=== PATIENT | female | born 1980 | race African-American/Black ===

== ENCOUNTER 2016-09-25 02:18 | Emergency (ER) | payer BC, MEDICAID ==
[~2016-09-25] VITALS: Ht 154.9 cm; Wt 119.0 kg
[~2016-09-25 02:18] MED LIST: DICL75 PO; TRAM50 PO; Z.0.NO CURRENT MEDS
[2016-09-25 02:21] VITALS: BP 159/101; PULSE 85; RESP 15; TEMP 98.4; O2SAT 100
--- NOTE | 2016-09-25 02:35 | PD ---
HPI Chief Complaint: Chest Pain Time Seen by Provider: 02:35 Travel History International Travel<30 days: No Contact w/Intl Traveler<30days: No Traveled to known affect area: No History of Present Illness HPI 35-year-old female came to the emergency room with history of on and off left sided chest pain for past 5 days. Patient says that when the pain comes it travels down her left arm and is severe. Tonight it woke her up at 3:00. No history of shortness of breath. Patient says that the pain is worse when she is moving around and gets better when she tries to relax and meditate. It is a sharp squeezing pain as per the patient. Vital signs are stable. She is otherwise a healthy person. [facility] Past Medical History Narrative Medical List of her past medical, surgical, social and family history is reviewed from the nursing note. Anemia: Yes Cardiovascular Problems: Yes (CHEST PAIN W/U 08/20) Diminished Hearing: No Immunizations Current: No ?: LMP: 8-14-17 : 4 Para: 3 Miscarriage: 0 : 1 Ovarian Cysts: No Past Surgical History Section: Yes (X 3) Gynecologic Surgery: Yes ( x3) Oral Surgery: Yes Social History Alcohol Use: No Tobacco Use: No Substance Use: No Allergies-Medications (Allergen,Severity, Reaction): Coded Allergies: metronidazole (Verified Adverse Reaction, Mild, Diarrhea, 09/25/16) Comments List of her allergies reviewed from the nursing note. Reported Meds & Prescriptions Reported Meds & Active Scripts Active Ibuprofen 600 Mg Tab 600 Mg PO Q6H PRN Narrative Medication List of her home medications are from the nursing note. Review of Systems Except as stated in HPI: all other systems reviewed are Neg Physical Exam Narrative GENERAL: Awake, alert, obese, anxious, mild distress SKIN: Focused skin assessment warm/dry. HEAD: Atraumatic. Normocephalic. EYES: Pupils equal and round. No scleral icterus. No injection or drainage. ENT: No nasal bleeding or discharge. Mucous membranes pink and moist. NECK: Trachea midline. No JVD. CARDIOVASCULAR: Regular rate and rhythm. No murmur appreciated. RESPIRATORY: No accessory muscle use. Clear to auscultation. Breath sounds equal bilaterally. Tender on the chest wall area on the sternum and left side GASTROINTESTINAL: Abdomen soft, non-tender, nondistended. Hepatic and splenic margins not palpable. MUSCULOSKELETAL: No obvious deformities. No clubbing. No cyanosis. No edema. NEUROLOGICAL: Awake and alert. No obvious cranial nerve deficits. Motor grossly within normal limits. Normal speech. PSYCHIATRIC: Appropriate mood and affect; insight and judgment normal. Data Data Last Documented VS Vital Signs Date Time Temp Pulse Resp B/P (MAP) Pulse Ox O2 Delivery O2 Flow Rate FiO2 09/25/16 02:56 70 157/99 (118) Nasal Cannula 146/89 (108) 09/25/16 02:55 100 09/25/16 02:40 98.1 17 Orders Orders Electrocardiogram (09/25/16 02:49) Basic Metabolic Panel (Bmp) (09/25/16 02:49) Ckmb (Isoenzyme) Profile (09/25/16 02:49) Complete Blood Count With Diff (09/25/16 02:49) D-Dimer (09/25/16 02:49) Magnesium (Mg) (09/25/16 02:49) Prothrombin Time / Inr (Pt) (09/25/16 02:49) Act Partial Throm Time (Ptt) (09/25/16 02:49) Troponin I (09/25/16 02:49) Chest, Single Ap (09/25/16 02:49) Ecg Monitoring (09/25/16 02:49) Bilateral Bp Monitoring (09/25/16 02:49) Iv Access Insert/Monitor (09/25/16 02:49) Oximetry (09/25/16 02:49) Oxygen Administration (09/25/16 02:49) Sodium Chloride 0.9% Flush (Ns Flush) (09/25/16 03:00) CKMB (09/25/16 02:55) CKMB% (09/25/16 02:55) Ct Pulmonary Angiogram (09/25/16 ) Iohexol 350 Inj (Omnipaque 350 Inj) (09/25/16 04:33) Labs Laboratory Tests Test 09/25/16 02:55 White Blood Count 7.7 TH/MM3 Red Blood Count 4.77 MIL/MM3 Hemoglobin 11.0 GM/DL Hematocrit 34.1 % Mean Corpuscular Volume 71.5 FL Mean Corpuscular Hemoglobin 23.0 PG Mean Corpuscular Hemoglobin Concent 32.1 % Red Cell Distribution Width 14.3 % Platelet Count 333 TH/MM3 Mean Platelet Volume 7.9 FL Neutrophils (%) (Auto) 42.7 % Lymphocytes (%) (Auto) 47.2 % Monocytes (%) (Auto) 7.0 % Eosinophils (%) (Auto) 2.2 % Basophils (%) (Auto) 0.9 % Neutrophils # (Auto) 3.3 TH/MM3 Lymphocytes # (Auto) 3.6 TH/MM3 Monocytes # (Auto) 0.5 TH/MM3 Eosinophils # (Auto) 0.2 TH/MM3 Basophils # (Auto) 0.1 TH/MM3 CBC Comment DIFF FINAL Differential Comment Prothrombin Time 10.7 SEC Prothromb Time International Ratio 1.0 RATIO Activated Partial Thromboplast Time 27.7 SEC D-Dimer Quantitative (PE/DVT) 0.79 MG/L FEU Blood Urea Nitrogen 12 MG/DL Creatinine 0.71 MG/DL Random Glucose 108 MG/DL Calcium Level 8.6 MG/DL Magnesium Level 1.8 MG/DL Sodium Level 140 MEQ/L Potassium Level 3.7 MEQ/L Chloride Level 105 MEQ/L Carbon Dioxide Level 29.8 MEQ/L Anion Gap 5 MEQ/L Estimat Glomerular Filtration Rate 113 ML/MIN Total Creatine Kinase 187 U/L Creatine Kinase MB 1.4 NG/ML Troponin I LESS THAN 0.02 NG/ML MDM Medical Decision Making Medical Screen Exam Complete: Yes Emergency Medical Condition: Yes Medical Record Reviewed: Yes Interpretation(s) Twelve-lead EKG was reviewed by me. Normal sinus rhythm, left axis deviation, inferior T wave inversions, J-point elevation. Heart rate of 69 bpm. Differential Diagnosis ACS, atypical chest pain, chest wall pain Narrative Course 4:47 AM blood test results of back and within normal limit. Patient's d-dimer however was elevated due to which a CT pulmonary angiogram was ordered. However it is negative for PE. Patient will be discharged home. Procedures EKG Prior to Arrival: No Diagnosis Primary Impression: Chest wall pain Referrals: Primary Care Physician 2 days Additional Instructions: Please return to the ER if the condition worsens or any other new concerns. Take the medication as per the prescription direction when needed. Follow-up with your primary care in couple days. He can apply warm compresses alternating with cold compress on the chest wall area. Do not take the medication empty stomach. Med/Other Pt SpecificInfo: Prescription(s) given Scripts Ibuprofen (Ibuprofen) 600 Mg Tab 600 MG PO Q6H Y for Pain/Inflammation, #40 TAB 0 Refills Prov: Jadiel Puentes MD 09/25/16 Disposition: 01 DISCHARGE HOME Condition: Stable Jadiel Puentes MD Sep 25, 2016 02:35
[2016-09-25 02:40] VITALS: BP 157/99; PULSE 81; RESP 17; TEMP 98.1; O2SAT 100
[2016-09-25 02:56] VITALS: BP_SYST 146; BP_SYST 157; BP_DIAS 89; BP_DIAS 99; PULSE 70
[2016-09-25] MEDS ORDERED: SODIUM CHLORIDE 0.9% FLUSH 10 ML FLUSH IVF PRN (03:00)
[2016-09-25 03:09] LABS: AUTOMATED NEUTROPHIL # 3.3 TH/MM3 (1.8-7.7); BASOPHIL # 0.1 TH/MM3 (0-0.2); BASOPHIL % 0.9 % (0.0-2.0); EOSINOPHIL # 0.2 TH/MM3 (0-0.4); EOSINOPHIL % 2.2 % (0.0-4.0); HEMATOCRIT 34.1 % (35.0-46.0); HEMO FLAGS DIFF FINAL; LYMPH % 47.2 % (9.0-44.0); LYMPHOCYTE # 3.6 TH/MM3 (1.0-4.8); MEAN CELL VOLUME 71.5 FL (80.0-100.0); MEAN CORPUSCULAR HGB CONC 32.1 % (32.0-36.0); NEUT % 42.7 % (16.0-70.0); PLATELET COUNT 333 TH/MM3 (150-450); RED BLOOD COUNT 4.77 MIL/MM3 (4.00-5.30); RED CELL DISTRIBUTION WIDTH 14.3 % (11.6-17.2); WHITE BLOOD COUNT 7.7 TH/MM3 (4.0-11.0)
[2016-09-25 03:23] LABS: APTT (PATIENT) 27.7 SEC (24.3-30.1); PROTHROMBIN TIME - PATIENT 10.7 SEC (9.8-11.6)
[2016-09-25 03:36] LABS: ANION GAP 5 MEQ/L (5-15); BICARBONATE 29.8 MEQ/L (21.0-32.0); BLOOD UREA NITROGEN 12 MG/DL (7-18); CHLORIDE 105 MEQ/L (98-107); GLOMERULAR FILTRATION RATE 113 ML/MIN (>89); MAGNESIUM 1.8 MG/DL (1.5-2.5); POTASSIUM 3.7 MEQ/L (3.5-5.1); SODIUM (NA) 140 MEQ/L (136-145)
[2016-09-25 03:41] LABS: CREATINE KINASE 187 U/L (26-192)
[2016-09-25 03:54] LABS: CKMB 1.4 NG/ML (0.5-3.6)
--- NOTE | 2016-09-25 04:13 | RADRPT ---
EXAM DATE/TIME: 09/25/2016 03:11 [facility] COMPARISON: CHEST SINGLE AP, July 21, 2011, 18:58. INDICATIONS : Chest pain. MEDICAL HISTORY : None. SURGICAL HISTORY : None. ENCOUNTER: Subsequent ACUITY: 3 days PAIN SCORE: 6/10 LOCATION: Bilateral chest FINDINGS: A single view of the chest demonstrates the lungs to be symmetrically aerated without evidence of mas s, infiltrate or effusion. The cardiomediastinal contours are unremarkable. Osseous structures are intact. CONCLUSION: The lungs are clear. Marty Sanchez MD on September 25, 2016 at 4:12 Board Certified Radiologist. This report was verified electronically.
[2016-09-25] MEDS ORDERED: IOHEXOL 350 MG/ML 10 ML VIAL (for RAD DIAG) IV ONE (04:33)
--- NOTE | 2016-09-25 04:41 | RADRPT ---
EXAM DATE/TIME: 09/25/2016 04:16 [facility] COMPARISON: No previous studies available for comparison. INDICATIONS : Left sided chest pain with elevated D-Dimer. IV CONTRAST: 70 cc Omnipaque 350 (iohexol) IV RADIATION DOSE: 20.05 CTDIvol (mGy) MEDICAL HISTORY : None SURGICAL HISTORY : None. ENCOUNTER: Initial ACUITY: 3 days PAIN SCALE: 6/10 LOCATION: Left chest TECHNIQUE: Volumetric scanning of the chest was performed using a pulmonary embolism protocol MIP images were re constructed. Using automated exposure control and adjustment of the mA and/or kV according to patien t size, radiation dose was kept as low as reasonably achievable to obtain optimal diagnostic quality images. DICOM format image data is available electronically for review and comparison. Follow-up recommendations for detected pulmonary nodules are based at a minimum on nodule size and pa tient risk factors according to Fleischner Society Guidelines. FINDINGS: PULMONARY ARTERIES: No filling defects are seen in the pulmonary arteries through the segmental level. LUNGS: There is no consolidation or pneumothorax . No concerning pulmonary nodule is visualized. PLEURAE: There is no pleural thickening or pleural effusion. MEDIASTINUM: There is good visualization of the great vessels of the middle mediastinum. No evidence of mediastin al or hilar adenopathy/mass. Soft tissue in the anterior mediastinum probably represents thymic remn ant. CONCLUSION: The study is negative for pulmonary embolism. Marty Sanchez MD on September 25, 2016 at 4:38 Board Certified Radiologist. This report was verified electronically.
[2016-09-25] MEDS ORDERED: IBUP-232 PO (04:49)
--- NOTE | 2016-09-25 09:01 | EKG ---
Date Performed: 09/25/2016 Time Performed: 02:53:30 PTAGE: 35 years EKG: Sinus rhythm NORMAL ECG PREVIOUS TRACING : 07/21/2011 18.19 DOCTOR: Linwood Saxena Interpretating Date/Time 09/25/2016 08:56:05
== END 2016-09-25 05:11 | disposition home or self-care (01) ==
LOC: NEPE 02:18
DX: R07.89 Other chest pain (principal); D64.9 Anemia, unspecified
CPT/HCPCS: 71010; 71275; 80048; 82550; 82552; 83735; 84484; 85025; 85379; 85610; 85730; 93005; 99285; Q9967

== ENCOUNTER 2018-02-15 05:30 | Observation (INO) ==
[2018-02-15 06:08] VITALS: RESP 16
[2018-02-15 06:10] LABS: Baso # (Auto) 0.1 th/mm3 (0.0-0.2); Baso % (Auto) 0.8 % (0.0-2.0); Eos # (Auto) 0.1 th/mm3 (0.0-0.4); Hematocrit 32.4 % (35.0-46.0); Hemoglobin 10.5 gm/dL (11.6-15.3); Lymph # (Auto) 3.1 th/mm3 (1.0-4.8); Lymph % (Auto) 45.2 % (9.0-44.0); Mean Corpuscular HGB Conc 32.3 % (32.0-36.0); Mean Corpuscular Hemoglobin 23.6 pg (27.0-34.0); Mean Corpuscular Volume 73.2 fL (80.0-100.0); Mean Platelet Volume 8.1 fL (7.0-11.0); Mono # (Auto) 0.5 th/mm3 (0.0-0.9); Mono % (Auto) 7.3 % (0.0-8.0); Neut # (Auto) 3.1 th/mm3 (1.8-7.7); Neut % (Auto) 44.7 % (16.0-70.0); Platelet Count 294 th/mm3 (150-450); Red Blood Count 4.43 mil/mm3 (4.00-5.30); Red Cell Distribution Width 14.9 % (11.6-17.2)
[2018-02-15 06:22] LABS: Activated Partial Thrombo Time 26.1 sec (23.4-31.7); Prothrombin Time 10.2 sec (9.8-11.6)
[2018-02-15 06:35] LABS: Alanine Aminotransferase 22 U/L (10-53); Albumin 3.2 g/dL (3.4-5.0); Alkaline Phosphatase 94 U/L (45-117); Anion Gap 6 meq/L (5-15); Aspartate Aminotransferase 23 U/L (15-37); Blood Urea Nitrogen 11 mg/dL (7-18); Calcium 8.2 mg/dL (8.5-10.1); Carbon Dioxide 22.9 meq/L (21.0-32.0); Chloride 109 meq/L (98-107); Creatine Kinase 222 U/L (26-192); Glomerular Filtration Rate Greater Than 89 mL/min (>89); Glucose,Random 124 mg/dL (74-106); Lipase 215 U/L (73-393); Magnesium 1.8 mg/dL (1.5-2.5); Potassium 5.1 meq/L (3.5-5.1); Sodium 138 meq/L (136-145); Total Protein 7.6 g/dL (6.4-8.2)
--- NOTE | 2018-02-15 06:44 | XR ---
EXAM DATE: 02/15/2018 6:30 AM EST AGE/SEX: 37 years / Female INDICATIONS: Chest pain. CLINICAL DATA: This is the patient's initial encounter. Patient reports that signs and symptoms have been present for 1 day and indicates a pain score of 7/10. MEDICAL/SURGICAL HISTORY: None. None. COMPARISON: No prior exams available for comparison. FINDINGS: A single AP view of the chest demonstrates the lungs to be symmetrically aerated without evidence of mass, infiltrate or effusion. The cardiomediastinal contours are unremarkable. Osseous structures a re intact. CONCLUSION: The lungs are clear. Electronically signed by: Marty Rice MD Board Certified Radiologist 02/15/2018 6:43 AM EST
[2018-02-15 06:47] LABS: CKMB Percent 0.6 % (0.0-4.0); Creatine Kinase MB 1.4 ng/mL (0.5-3.6)
--- NOTE | 2018-02-15 06:47 | ED ---
HPI General Chief complaint: Chest Pain Stated complaint: Chest Pain Time Seen by Provider: 02/15/18 05:47 Source: patient Limitations: no limitations History of Present Illness HPI narrative: The patient is a 37 year old female who presents to the [facility] emergency department with a history of chest pain in the center of her chest that she reports began at 4 AM. She reports that it awoke her from sound sleep. She reports having associated shortness of breath and diaphoresis. She denies having any nausea or vomiting. She reports that the pain radiates into the right side of her chest and down the right arm. She reports that the pain is a pressure sensation. She denies ever having a pain like this previously. She denies ever having a stress test previously. She denies having any prior history of being diagnosed with diabetes, hypertension, or hyperlipidemia. She denies any smoking history. On review of systems otherwise, the patient denies having any known recent fevers, cough, congestion, neck pain, abdominal pain, diarrhea, or neurologic symptoms. The patient does however report having increased urinary frequency over the last month. The patient reports having a family history of heart disease in her grandfather. LMP: Ended 3 days ago. Related Data Home Medications Medication Instructions Recorded Confirmed No Known Home Medications 02/15/18 02/15/18 Allergies Allergy/AdvReac Type Severity Reaction Status Date / Time metronidazole AdvReac Mild Diarrhea Verified 09/25/16 02:27 Review of Systems ROS: all other systems reviewed are negative PMFSH Medical History Medical History Patient denies significant medical history (Acute) Surgical History Surgical History History of section (Acute) Social History Social History Smoking Status: Never smoker How Often Do You Have a Drink Containing Alcohol: Monthly or less Recent Travel in [facility] within the Last 8 Weeks: No Recent Out of Country Travel within the Last 8 Weeks: No Immunization History Tetanus Immunization: >5 Years Exam Const General: cooperative, no acute distress and well developed Nutritional Appearance: well nourished Orientation: alert, awake and oriented x3 HENMT Head: normocephalic and atraumatic Nose: no nasal discharge and no epistaxis Mouth: moist mucous membranes Throat: posterior oropharynx normal and uvula midline Eyes Sclera: normal sclerae Pupils: PERRL Neck Neck: no meningeal signs, trachea midline and no JVD Chest Chest: normal inspection of the chest and no tenderness Resp Effort & Inspection: no use of accessory muscles Auscultation: clear to auscultation bilaterally Cardio Rate: regular rate Rhythm: regular rhythm Heart Sounds: no gallops, no murmurs and no rubs GI Inspection: non-distended Palpation: soft, no hepatosplenomegaly, no guarding, not rigid and nontender Auscultation: normal bowel sounds Back/Spine/Pelvis Back: CVA tenderness (Reported CVA tenderness on the right side.) Skin General: dry skin (warm) Neuro General: alert, awake, oriented x3 and other (Grossly nonfocal.) Speech: speech normal Motor: no movement abnormalities noted Extrem General: normal to inspection (2+ pulses in all 4 extremities.), no calf tenderness, no clubbing, no cyanosis and no edema Psych Mood: congruent mood Affect: normal affect Judgment: judgment good Course Initial Documented Vital Signs Temperature 97.5 F L 02/15/18 05:32 Pulse Rate 85 02/15/18 05:32 Respiratory Rate 18 02/15/18 05:32 Blood Pressure 153/98 H 02/15/18 05:32 Pulse Oximetry 100 02/15/18 05:32 Last Documented Vital Signs Temperature 97.5 F L 02/15/18 05:32 Pulse Rate 74 02/15/18 06:07 Respiratory Rate 16 02/15/18 06:07 Blood Pressure 136/79 02/15/18 06:07 Pulse Oximetry 99 02/15/18 06:15 Clinical Decision Support PERC Rule Age greater than or equal to 50: No HR greather than or equal to 100: No Sa02 on room air is less than 95%: No Unilateral Leg Swelling: No Hemoptysis: No Recent Surgery or Trauma: No Prior PE or DVT: No Hormone Use: No Wells' Criteria Questions Clinical Signs and Symptoms of DVT: No PE is primary diagnosis or equally likely: No Heart Rate greater than 100: No Immobilized at least 3 days or Surgery in previous 4 weeks: No Previous, objectively diagnosed PE or DVT: No Hemoptysis: No Malignancy with treatment within 6 months or palliative: No Wells' Criteria Score Wells' Criteria Score: 0 Medical Decision Making MDM Narrative Medical decision making narrative: During the course of the patient's emergency department visit, the patient's history, examination, and differential diagnosis were reviewed with the patient. The patient was placed on a equipment monitor phototypesetting with oximetry and frequent blood pressure monitoring. The patient had IV access obtained and blood work sent for analysis. A diagnostic evaluation was started regarding the patient's chest pain per The patient was initially provided aspirin 324 mg p.o. x1. The patient's diagnostic studies are remarkable for a white count of 7, hemoglobin 10.5, platelets 294, with a lymphocytosis of 45.2, PT PTT within normal limits, chemistries remarkable for chloride of 109, glucose 124, calcium 8.2, CPK 222, troponin I is less than 0.02, albumin 3.2, lipase 215. A chest x- ray showed no evidence of acute cardiopulmonary disease. The patient was agreeable with the plan to proceed with admission to the chest pain center for rule out serial cardiac enzyme protocol followed by stress testing. The patient's results were discussed with the patient, including the plan of care. I explained that further testing and/ or monitoring is indicated based on the patient's history, examination, and/ or laboratory findings. Therefore, I recommended admission for additional evaluation. The patient expressed understanding and was agreeable with this plan. The patient was admitted to the hospital in stable condition and sent to a bed under the care of the [facility]. Medical Screen Exam Complete: Yes Emergency Medical Condition: Yes Differential Diagnosis Differential Diagnosis: Acute coronary syndrome, versus pneumothorax, versus anxiety disorder, versus acid reflux, versus pulmonary embolism Medical Records Medical records reviewed: Yes I reviewed the patient's medical records. Lab Data Lab results reviewed: Yes I reviewed the patient's lab results. Result diagrams: 02/15/18 06:00 02/15/18 06:00 POC Results POC Urine Results Negative Lab Results 02/15/18 02/15/18 02/15/18 Range/Units 06:00 06:00 06:00 WBC 7.0 (4.0-11.0) th/mm3 RBC 4.43 (4.00-5.30) mil/mm3 Hgb 10.5 L (11.6-15.3) gm/dL Hct 32.4 L (35.0-46.0) % MCV 73.2 L (80.0-100.0) fL MCH 23.6 L (27.0-34.0) pg MCHC 32.3 (32.0-36.0) % RDW 14.9 (11.6-17.2) % Plt Count 294 (150-450) th/mm3 MPV 8.1 (7.0-11.0) fL Neut % (Auto) 44.7 (16.0-70.0) % Lymph % (Auto) 45.2 H (9.0-44.0) % [place] % (Auto) 7.3 (0.0-8.0) % Eos % (Auto) 2.0 (0.0-4.0) % Baso % (Auto) 0.8 (0.0-2.0) % Neut # (Auto) 3.1 (1.8-7.7) th/mm3 Lymph # (Auto) 3.1 (1.0-4.8) th/mm3 [place] # (Auto) 0.5 (0.0-0.9) th/mm3 Eos # (Auto) 0.1 (0.0-0.4) th/mm3 Baso # (Auto) 0.1 (0.0-0.2) th/mm3 WBC Differential . Differential Comment Auto diff final PT 10.2 (9.8-11.6) sec INR 1.0 Ratio APTT 26.1 (23.4-31.7) sec Sodium 138 (136-145) meq/L Potassium 5.1 (3.5-5.1) meq/L Chloride 109 H (98-107) meq/L Carbon Dioxide 22.9 (21.0-32.0) meq/L Anion Gap 6 (5-15) meq/L BUN 11 (7-18) mg/dL Creatinine 0.60 (0.50-1.00) mg/dL Estimated GFR Greater than 89 (>89) mL/min Random Glucose 124 H (74-106) mg/dL Calcium 8.2 L (8.5-10.1) mg/dL Magnesium 1.8 (1.5-2.5) mg/dL Total Bilirubin 0.3 (0.2-1.0) mg/dL AST 23 (15-37) U/L ALT 22 (10-53) U/L Alkaline Phosphatase 94 (45-117) U/L Total Creatine Kinase 222 H (26-192) U/L CK-MB (CK-2) 1.4 (0.5-3.6) ng/mL CK-MB (CK-2) % 0.6 (0.0-4.0) % Troponin I Less than 0.02 L (0.02-0.05) ng/mL Total Protein 7.6 (6.4-8.2) g/dL Albumin 3.2 L (3.4-5.0) g/dL Lipase 215 (73-393) U/L Imaging Data Attestation: I personally reviewed and interpreted this imaging study as follows : Radiologist's impression: Chest X-Ray 02/15/18 05:53 CONCLUSION: The lungs are clear. ECG Data Attestation: I personally reviewed and interpreted this ECG as follows: Interpretation: The patient had an EKG done on arrival. The patient's EKG reveals a sinus rhythm heart rate of 84, QRS duration is 102 ms, QTC 390 ms. The patient has T waves that are inverted in the, V1. Discharge Plan Discharge Disposition Patient Disposition: ED Admit(ED Internal Use Only) Discharge Order Discharge Orders: ED Use Only Admit Order (Routine); Ordered 02/15/18 Ordered By: Jina Russell Discharge Details Diagnosis: Chest pain, rule out acute myocardial infarction Physicians Team ED Provider: Jina Russell Primary Care Provider: Primary Care Marely Vergara Attending Provider: Phil Hoyos Status ED Status: Admitted Observation Patient
[2018-02-15] MEDS ORDERED: Acetaminophen 500 MG Tablet PO PRN (07:02)
[2018-02-15 07:06] LABS: Bilirubin,Urine Negative (Negative); Clarity,Urine Clear (Clear); Color,Urine Yellow (Yellw/Straw); Glucose,Urine (UA) Negative (Negative); Leukocyte Esterase,Urine Negative (Negative); Nitrite,Urine Negative (Negative); Specific Gravity,Urine 1.018 (1.002-1.035); Squamous Epithelial Cell,Urine 1 /hpf (0-5)
--- NOTE | 2018-02-15 08:21 | P.HPCA ---
History of Present Illness Primary Care Physician: No Primary Care Physician Chief Complaint: Chest pain History of Present Illness: 37 year old female without past medical history presents to the emergency room for further evaluation of right-sided posterior back pain and right sided chest pain. Onset intermittent x2 months, generally occurring twice weekly. Early this morning was awakened from sleep, characterized as sharp. Discomfort began right posterior back with radiation to the right anterior chest. No particular position or movement make pain better or worse. No recent or remote injury. No recent illness, fever, cough. No nausea, dyspnea, or diaphoresis. Past cardiac testing None Social history No known hypertension, hyperlipidemia, or diabetes. Lifelong nonsmoker. No alcohol or recreational drug use. Works as a medical billing clerk. Family history Noncontributory for early onset cardiovascular disease. - Diagnosis (1) Atypical chest pain (2) Anemia Review of Systems All other systems reviewed negative except as stated in HPI PMFSH - History History Provided By: Patient - Medical History Medical History: Medical History (Last Reviewed 02/15/18 @ 09:34 by SARAH Dang) Patient denies significant medical history - Surgical History Surgical History: Surgical History (Last Reviewed 02/15/18 @ 09:34 by SARAH Dang) History of section - Tobacco History Smoking Status: Never smoker - Alcohol History How Often Do You Have a Drink Containing Alcohol: Monthly or less - Travel History Recent Travel in the [place] Within the Last 8 Weeks: No Recent Travel Out of the Country Within the Last 8 Weeks: No - Immunization History Tetanus Immunization: >5 Years Medications and Allergies Active Medications: Active Medications Acetaminophen (Tylenol) 500 mg PO Q4H PRN PRN Reason: HEADACHE Sodium Chloride (Ns Flush) 2 ml IV.FLUSH UNSCH PRN PRN Reason: FLUSH AFTER USING IV ACCESS Sodium Chloride (Ns Flush) 2 ml IV.FLUSH BID [place] Sodium Chloride (Ns Flush) 2 ml IV.FLUSH PRN PRN PRN Reason: FLUSH AFTER USING IV ACCESS Allergies Allergy/AdvReac Type Severity Reaction Status Date / Time metronidazole AdvReac Mild Diarrhea Verified 09/25/16 02:27 Home Medications Medication Instructions Recorded Confirmed Type No Known Home Medications 02/15/18 02/15/18 History Exam Vital signs: Vital Signs 02/15/18 05:32 02/15/18 05:34 02/15/18 06:04 Temperature 97.5 F L Pulse Rate 85 Respiratory Rate 18 16 Blood Pressure 153/98 H Pulse Oximetry 100 100 100 02/15/18 06:07 02/15/18 06:15 Temperature Pulse Rate 74 Respiratory Rate 16 Blood Pressure 136/79 Pulse Oximetry 99 99 Intake & Output 02/14/18 02/15/18 02/15/18 18:59 06:59 18:59 Weight 127.913 kg Narrative: GENERAL: Alert WN, WD, NAD, pleasant, obese female HEAD: NC, AT EYES: Sclera clear, conjunctiva without injection, pupils equal and round ENT: Mucous membranes pink and moist NECK: Supple, no masses, trachea midline CV: RRR, without murmur, rub, gallop, no JVD, S1-S2. Chest wall nontender to palpation RESP: Clear lungs throughout bilateral, no crackles, wheeze, rhonchi, symmetrical chest rise, nonlabored, able to speak in full sentences ABD: Soft, NT, ND, no masses, positive bowel tones EXT: Pulses +2x4, no dependent edema MS: Normal tone x4 extremities, nontender, no obvious deformities, full range of motion NEURO: Motor strength 5/5, gait WNL PSYCH: A+O x3, pleasant affect, appropriate speech, mood, insight and judgment SKIN: Normal turgor, normal texture, no lesions, no rashes Results 02/15/18 06:00 02/15/18 06:00 Cardiac Enzymes 02/15/18 Range/Units 06:00 AST 23 (15-37) U/L CK-MB (CK-2) 1.4 (0.5-3.6) ng/mL Troponin I Less than 0.02 L (0.02-0.05) ng/mL Coagulation 02/15/18 Range/Units 06:00 PT 10.2 (9.8-11.6) sec APTT 26.1 (23.4-31.7) sec CBC 02/15/18 Range/Units 06:00 WBC 7.0 (4.0-11.0) th/mm3 RBC 4.43 (4.00-5.30) mil/mm3 Hgb 10.5 L (11.6-15.3) gm/dL Hct 32.4 L (35.0-46.0) % Plt Count 294 (150-450) th/mm3 Neut # (Auto) 3.1 (1.8-7.7) th/mm3 Lymph # (Auto) 3.1 (1.0-4.8) th/mm3 [place] # (Auto) 0.5 (0.0-0.9) th/mm3 Eos # (Auto) 0.1 (0.0-0.4) th/mm3 Baso # (Auto) 0.1 (0.0-0.2) th/mm3 Comprehensive Metabolic Panel 02/15/18 Range/Units 06:00 Sodium 138 (136-145) meq/L Potassium 5.1 (3.5-5.1) meq/L Chloride 109 H (98-107) meq/L Carbon Dioxide 22.9 (21.0-32.0) meq/L BUN 11 (7-18) mg/dL Creatinine 0.60 (0.50-1.00) mg/dL Calcium 8.2 L (8.5-10.1) mg/dL AST 23 (15-37) U/L ALT 22 (10-53) U/L Alkaline Phosphatase 94 (45-117) U/L Total Protein 7.6 (6.4-8.2) g/dL Albumin 3.2 L (3.4-5.0) g/dL Intake and Output 02/14/18 02/15/18 02/15/18 22:59 06:59 14:59 Other: Weight 127.913 kg - Imaging and Cardiology Imaging: Impressions Chest X-Ray 02/15/18 05:53 CONCLUSION: The lungs are clear. EKG interpretations - EKG EKG results cardiology: sinus rhythm, normal axis, normal QRS, normal ST/T Caprini VTE Risk Assessment Caprini VTE Risk Assessment: No/Low Risk (score <= 1) Caprini Risk Assessment Model: Point Value = 1 Point Value = 2 Point Value = 3 Point Value = 5 Age 41-60 Minor surgery BMI > 25 kg/m2 Swollen legs Varicose veins or History of unexplained or recurrent spontaneous Oral contraceptives or hormone replacement Sepsis (< 1 month) Serious lung disease, including pneumonia (< 1 month) Abnormal pulmonary function Acute myocardial infarction Congestive heart failure (< 1 month) History of inflammatory bowel disease Medical patient at bed rest Age 61-74 Arthroscopic surgery Major open surgery (> 45 min) Laparoscopic surgery (> 45 min) Malignancy Confined to bed (> 72 hours) Immobilizing plaster cast Central venous access Age >= 75 History of VTE Family history of VTE Factor V Leiden Prothrombin [id number] Lupus anticoagulant Anticardiolipin antibodies Elevated serum homocysteine Heparin-induced thrombocytopenia Other congenital or acquired thrombophilia Stroke (< 1 month) Elective arthroplasty Hip, pelvis, or leg fracture Acute spinal cord injury (< 1 month) Prophylaxis Regimen: Total Risk Factor Score Risk Level Prophylaxis Regimen 0-1 Low Early ambulation 2 Moderate Order ONE of the following: *Sequential Compression Device (SCD) *Heparin 5000 units SQ BID 3-4 Higher Order ONE of the following medications: *Heparin 5000 units SQ TID *Enoxaparin/Lovenox 40 mg SQ daily (WT < 150 kg, CrCl > 30 mL/min) *Enoxaparin/Lovenox 30 mg SQ daily (WT < 150 kg, CrCl > 10-29 mL/min) *Enoxaparin/Lovenox 30 mg SQ BID (WT < 150 kg, CrCl > 30 mL/min) AND/OR *Sequential Compression Device (SCD) 5 or more Highest Order ONE of the following medications: *Heparin 5000 units SQ TID (Preferred with Epidurals) *Enoxaparin/Lovenox 40 mg SQ daily (WT < 150 kg, CrCl > 30 mL/min) *Enoxaparin/Lovenox 30 mg SQ daily (WT < 150 kg, CrCl > 10-29 mL/min) *Enoxaparin/Lovenox 30 mg SQ BID (WT < 150 kg, CrCl > 30 mL/min) AND *Sequential Compression Device (SCD) Assessment and Plan - Assessment (1) Atypical chest pain Code(s): R07.89 - Other chest pain Status: Acute Plan: Admitted to chest pain center. Seen and evaluated by Dr. Darryl Coleman. Proceed with Lexiscan after obtaining test. If unremarkable, plans to discharge home follow-up primary care provider. (2) Anemia Code(s): D64.9 - Anemia, unspecified Status: Chronic Plan: Reviewed comparison hemoglobin and hematocrit from previously visits, instructed to follow up with primary care provider. (2) Anemia Qualifiers: Anemia type: unspecified type Qualified Code(s): D64.9 - Anemia, unspecified
[2018-02-15] MEDS ORDERED: Regadenoson Inj 0.4 MG/5 ML Syringe IV.PUSH ONE (09:17)
[2018-02-15 10:05] LABS: Creatine Kinase 123 U/L (26-192)
--- NOTE | 2018-02-15 12:17 | NM ---
EXAM DATE: 02/15/2018 11:30 AM EST AGE/SEX: 37 years / Female INDICATIONS:Angina. . Sub-sternal chest pain with dyspnea and diaphoresis. CLINICAL DATA: This is the patient's initial encounter. Patient reports that signs and symptoms have been present for 1 day and indicates a pain score of 5/10. MEDICAL/SURGICAL HISTORY: None. section. COMPARISON: No prior exams available for comparison. DOSE: 11 mCi Tc 99m Myoview at rest 35 mCi [id number] at stress 0.4 mg Lexiscan STRESS SYMPTOMS: Stomach cramps. EJECTION FRACTION: 53 % TECHNIQUE: The patient underwent pharmacologic stress with infusion of prescribed dose. Continuous ECG tracing was monitored during stress. Gated SPECT imaging was performed after stress and conventi onal SPECT imaging was performed at rest. The examination was performed on a SPECT/CT scanner, both attenuation and non-corrected datasets were reviewed. FINDINGS: Distribution: The maximum perfused segment at stress is in the anterolateral wall. Perfusion Study: Small size nonreversible perfusion abnormality involving the inferior wall extendi ng to the cardiac apex Gated Study: There are intact wall motion and wall thickening without hypokinetic or dyskinetic segm ents. The ejection fraction is calculated at 53%. RISK CATEGORY: Low (<1% Annual Mortality Rate) CONCLUSION: Small inferior and apical perfusion abnormality without evidence of redistribution. Electronically signed by: Mynor Bhagat MD Board Certified Radiologist 02/15/2018 12:16 PM EST
[2018-02-15 12:51] VITALS: BP 126/78; TEMP 97.6; O2SAT 99
[2018-02-15 14:22] VITALS: PULSE 105
--- NOTE | 2018-02-15 16:00 | TR ---
Date Performed: 02/15/2018 Time Performed: 10:34:26 DOCTOR: Darryl Coleman DRUG LIST: CLINICAL HISTORY: REASON FOR TEST: REASON FOR ENDING: OBSERVATION: CONCLUSION: COMMENTS: Lexiscan stress test was performed under standard four minute protocol. Radionuclide was injected one minute prior to ending the test. No electrocardiographic abormalities were present t o suggest ischemia. Nuclear imaging and interpretation are pending.
--- NOTE | 2018-02-15 20:56 | ECG ---
Date Performed: 02/15/2018 Time Performed: 08:57:49 PTAGE: 37 years EKG: Sinus rhythm NORMAL ECG NO PREVIOUS TRACING DOCTOR: Linwood Saxena Interpretating Date/Time 02/15/2018 20:54:45
--- NOTE | 2018-02-15 21:02 | ECG ---
Date Performed: 02/15/2018 Time Performed: 05:50:02 PTAGE: 37 years EKG: Sinus rhythm LOW QRS VOLTAGE IN PRECORDIAL LEADS POSSIBLE RIGHT VENTRICULAR CONDUCTION DELAY BORDERLINE ECG PREVIOUS TRACING : 09/25/2016 02.53 Since the previous tracing, no significant change noted DOCTOR: Linwood Saxena Interpretating Date/Time 02/15/2018 21:01:35
== END 2018-02-15 15:02 | disposition home or self-care (01) ==
LOC: NEPE 05:30 → NEDA 05:30 → NEPGCP 11:51
DX: Z82.49 Family history of ischemic heart disease and other diseases of the circulatory system; R07.89 Other chest pain; D64.9 Anemia, unspecified; R94.31 Abnormal electrocardiogram [ECG] [EKG]; Z98.891 History of uterine scar from previous surgery
CPT/HCPCS: 71010; 71045; 78452; 80053; 81001; 82550; 82552; 83690; 83735; 84484; 84703; 85025; 85610; 85730; 93005; 93017; 99285; A9502; G0378; J2785; Q9969